=== PATIENT | female | born 1975 | race African-American/Black ===

== ENCOUNTER 2016-11-23 21:32 | Inpatient (IN) | payer MEDICAID ==
[~2016-11-23] VITALS: Ht 165.1 cm; Wt 117.9 kg
[2016-11-23] MEDS ORDERED: SODIUM CHLORIDE 0.9% 1,000 ML IV ONE (21:56)
[2016-11-23] MEDS ORDERED: METOCLOPRAMIDE HCL 10MG/2ML VIAL IV ONE (22:00)
[2016-11-23] MEDS ORDERED: SUMATRIPTAN SUCCINATE 6MG/0.5ML VIAL SUBCUT ONE (22:00)
[2016-11-23 22:36] LABS: CLARITY URINE CLEAR (CLEAR); COLOR URINE YELLOW (YELLOW); GLUCOSE URINE NEGATIVE (NEGATIVE); KETONES URINE NEGATIVE (NEGATIVE); LEUKOCYTE ESTERASE URINE NEGATIVE (NEGATIVE); NITRITE URINE NEGATIVE (NEGATIVE); OCCULT BLOOD URINE NEGATIVE (NEGATIVE); PROTEIN URINE NEGATIVE (NEGATIVE)
[2016-11-23 22:56] LABS: *AMPHETAMINES SCREEN URINE NEGATIVE (NEGATIVE); *BARBITURATES SCREEN URINE NEGATIVE (NEGATIVE); *BENZODIAZEPINES SCREEN URINE NEGATIVE (NEGATIVE); *COCAINE SCREEN URINE NEGATIVE (NEGATIVE); CANNABINOID URINE SCREEN NEGATIVE (NEGATIVE); METHADONE URINE SCREEN NEGATIVE (NEGATIVE); OPIATES URINE SCREEN NEGATIVE (NEGATIVE); PHENCYCLIDINE URINE SCREEN NEGATIVE (NEGATIVE)
[2016-11-23 23:29] LABS: BASOPHILS % 0.8 % (0.0-2.0); EOSINOPHILS % 0.8 % (0.0-5.0); HEMOGLOBIN. 9.7 g/dL (12.0-16.0); MEAN CORPUSCULAR HEMOGLOBIN 18.1 pg (28.0-32.0); MEAN PLATELET VOLUME 8.6 fl (7.4-10.4); MONOCYTES % 9.2 % (2.0-8.0); NEUTROPHILS % 73.2 % (40.0-76.0); PLATELET 488 x1000/uL (130-400); RED BLOOD CELL COUNT 5.34 mill/uL (4.2-5.4)
[2016-11-23 23:44] LABS: CARBON DIOXIDE 26 mEq/L (21-32); CHLORIDE 99 mEq/L (98-107); ETHANOL BLOOD < 10 mg/dL; TROPONIN I < 0.02 ng/mL (0.00-0.04)
[2016-11-24] MEDS ORDERED: PROCHLORPERAZINE 10MG/2ML VIAL IV STA (00:05)
[2016-11-24] MEDS ORDERED: MORPHINE SULFATE 4 MG/ML CPJ (NOT FOR IM USE) IV ONE (00:15)
[2016-11-24] MEDS ORDERED: MORPHINE SULFATE 4 MG/ML CPJ (NOT FOR IM USE) IV NR (01:30)
[2016-11-24] MEDS ORDERED: SODIUM CHLORIDE 0.9% 1,000 ML IV ONE (01:53)
[2016-11-24] MEDS ORDERED: ACETAMINOPHEN 325MG TABLET PO ONE (02:00)
[2016-11-24] MEDS ORDERED: METOCLOPRAMIDE HCL 10MG/2ML VIAL IV ONE (02:00)
[2016-11-24] MEDS ORDERED: DEXAMETHASONE 10 MG/ML VIAL IV ONE (02:15)
[2016-11-24] MEDS ORDERED: SODIUM CHLORIDE 0.9% 1,000 ML IV NR (02:49)
[2016-11-24 03:01] LABS: GLUCOSE CSF 73 mg/dL (41-75)
[2016-11-24 04:00] VITALS: BP 127/70
[2016-11-24 04:50] VITALS: BP 127/70
[2016-11-24] MEDS ORDERED: KETOROLAC 30MG/ML VIAL IV PRN (06:15)
[2016-11-24 06:52] LABS: PLATELET ESTIMATE INCREASED
[2016-11-24 08:00] VITALS: BP 111/62
[2016-11-24 09:49] LABS: BASOPHILS % 0.8 % (0.0-2.0); HEMATOCRIT. 26.8 % (36.0-48.0); HEMOGLOBIN. 8.2 g/dL (12.0-16.0); LYMPHOCYTES % 19.6 % (20.0-50.0); MEAN CORPUSCULAR VOLUME 59.2 fL (81.0-99.0); MEAN PLATELET VOLUME 7.8 fl (7.4-10.4); MONOCYTES % 10.9 % (2.0-8.0); NEUTROPHILS % 67.7 % (40.0-76.0); PLATELET 402 x1000/uL (130-400); RED BLOOD CELL COUNT 4.53 mill/uL (4.2-5.4); RED CELL DISTRIBUTION WIDTH 17.9 % (11.6-14.6)
[2016-11-24 10:21] LABS: CARBON DIOXIDE 26 mEq/L (21-32); CHLORIDE 105 mEq/L (98-107); CREATINE KINASE 240 IU/L (26-192); CREATINE KINASE MB FRACTION 0.7 ng/mL (0.5-3.6); TROPONIN I < 0.02 ng/mL (0.00-0.04)
[2016-11-24] MEDS ORDERED: HYDR25TA PO (11:17)
[2016-11-24] MEDS ORDERED: AMLO10TA80 PO (11:17)
[2016-11-24] MEDS ORDERED: IBUP-2030 PO (11:17)
[2016-11-24 12:00] VITALS: BP 127/78
[2016-11-24] MEDS ORDERED: ONDANSETRON HCL 4MG/2ML VIAL IV PRN (13:00)
[2016-11-24] MEDS ORDERED: POTASSIUM CHLORIDE 20MEQ TABLET SR PO NR (13:00)
[2016-11-24] MEDS ORDERED: DIPHENHYDRAMINE 50MG/ML VIAL IV NR ×2 (13:15→23:09)
[2016-11-24] MEDS: AMLODIPINE 10MG TABLET PO SCH (13:15)
[2016-11-24] MEDS: HYDROCHLOROTHIAZIDE 25MG TABLET PO SCH (13:36)
[2016-11-24] MEDS ORDERED: SUMATRIPTAN SUCCINATE 6MG/0.5ML VIAL SUBCUT NR (14:30)
[2016-11-24] MEDS ORDERED: SODIUM CHLORIDE 0.9% 10ML VIAL ONE (15:50)
[2016-11-24] MEDS ORDERED: IOHEXOL-350 100 ML BOTTLE ONE (15:50)
[2016-11-24 15:58] LABS: CREATINE KINASE 283 IU/L (26-192); CREATINE KINASE MB FRACTION 0.7 ng/mL (0.5-3.6); TROPONIN I < 0.02 ng/mL (0.00-0.04)
[2016-11-24 16:00] VITALS: BP 125/71
[2016-11-24] MEDS ORDERED: NAPROXEN 375MG TABLET PO PRN (18:30)
[2016-11-24 20:00] VITALS: BP 128/78
[2016-11-24] MEDS ORDERED: NORTRIPTYLINE HCL 25MG CAPSULE PO SCH (21:00)
[2016-11-25] VITALS: BP 110/74
[2016-11-25 04:00] VITALS: BP 108/59
[2016-11-25] MEDS ORDERED: NORT25CA PO (07:31)
[2016-11-25] MEDS ORDERED: NAPR-679 PO (07:31)
[2016-11-25] MEDS: HYDROCHLOROTHIAZIDE 25MG TABLET PO SCH (08:35)
[2016-11-25] MEDS: AMLODIPINE 10MG TABLET PO SCH (08:36)
[2016-11-25 09:40] LABS: BASOPHILS % 1.1 % (0.0-2.0); EOSINOPHILS % 2.8 % (0.0-5.0); HEMATOCRIT. 29.3 % (36.0-48.0); HEMOGLOBIN. 8.7 g/dL (12.0-16.0); LYMPHOCYTES % 25.8 % (20.0-50.0); MEAN CORPUSCULAR VOLUME 60.1 fL (81.0-99.0); MEAN PLATELET VOLUME 8.6 fl (7.4-10.4); MONOCYTES % 11.7 % (2.0-8.0); NEUTROPHILS % 58.6 % (40.0-76.0); PLATELET 411 x1000/uL (130-400); RED BLOOD CELL COUNT 4.87 mill/uL (4.2-5.4); RED CELL DISTRIBUTION WIDTH 17.7 % (11.6-14.6)
[2016-11-25 10:14] LABS: CARBON DIOXIDE 27 mEq/L (21-32); CHLORIDE 101 mEq/L (98-107)
[2016-11-25 10:21] VITALS: BP 112/74
== END 2016-11-25 12:33 | disposition home or self-care (01) | DRG 54 ==
LOC: ER 21:53 → 5WST 11-24 02:50 → ENRESERV 11-24 03:48
PROVIDERS: ADMIT Family Medicine; ATTEND Family Medicine
DX: G43.919 Migraine, unspecified, intractable, without status migrainosus (principal); Z68.41 Body mass index [BMI] 40.0-44.9, adult; I10 Essential (primary) hypertension; E66.01 Morbid (severe) obesity due to excess calories; D50.9 Iron deficiency anemia, unspecified; F51.04 Psychophysiologic insomnia; E78.00 Pure hypercholesterolemia, unspecified; E78.5 Hyperlipidemia, unspecified; E87.6 Hypokalemia; G89.29 Other chronic pain; L56.8 Other specified acute skin changes due to ultraviolet radiation; H53.149 Visual discomfort, unspecified; M79.1 Myalgia; M54.2 Cervicalgia; M54.9 Dorsalgia, unspecified; Z72.89 Other problems related to lifestyle
CPT/HCPCS: 36415; 62270; 70496; 80053; 80305; 81003; 82550; 82553; 82945; 83605; 83690; 84157; 84484; 85025; 87070; 87205; 89050; 96361; 96372; 96374; 96375; 99285; A4216; G0482; J0780; J1100; J1200; J1885; J2405; J2765; J3030; J7030; Q9967

== ENCOUNTER 2020-11-15 17:16 | Emergency (ER) | payer MEDICAID ==
[~2020-11-15] VITALS: Ht 175.3 cm; Wt 120.0 kg
[~2020-11-15 17:16] MED LIST: AMLO10TA80 PO; HYDR25TA PO; IBUP-2030 PO; NAPR-679 PO; NORT25CA PO
[2020-11-15] MEDS ORDERED: VISCOUS LIDOCAINE 2% 15 ML UDC PO STA (17:35)
[2020-11-15] MEDS ORDERED: MAGNESIUM/ALUMINUM HYDROXIDE/SIMETHICONE 30ML UDC PO STA (17:35)
[2020-11-15] MEDS ORDERED: FAMOTIDINE 20MG/2ML VIAL IV STA (17:35)
[2020-11-15] MEDS ORDERED: SODIUM CHLORIDE 0.9% 1,000 ML IV ONE (17:45)
[2020-11-15 18:11] LABS: CLARITY URINE TURBID (CLEAR); COLOR URINE YELLOW (YELLOW); KETONES URINE NEGATIVE (NEGATIVE); LEUKOCYTE ESTERASE URINE TRACE (NEGATIVE); NITRITE URINE NEGATIVE (NEGATIVE); OCCULT BLOOD URINE NEGATIVE (NEGATIVE); PROTEIN URINE NEGATIVE (NEGATIVE); SPECIFIC GRAVITY URINE 1.025 (1.005-1.030); UROBILINOGEN URINE 0.2 E.U./dL (0.2-1.0)
[2020-11-15 18:12] LABS: EOSINOPHILS % 1.1 % (0.0-5.0); HEMATOCRIT. 41.7 % (36.0-48.0); HEMOGLOBIN. 14.1 g/dL (12.0-16.0); LYMPHOCYTES % 22.7 % (20.0-50.0); MEAN CORPUSCULAR VOLUME 77.2 fL (81.0-99.0); MONOCYTES % 7.2 % (2.0-8.0); PLATELET 388 x1000/uL (130-400); RED CELL DISTRIBUTION WIDTH 14.8 % (11.6-14.6)
[2020-11-15 18:20] LABS: CHLORIDE 103 mEq/L (98-107)
[2020-11-15 18:24] LABS: ETHANOL BLOOD < 10 mg/dL
[2020-11-15 18:36] LABS: HCG SCREEN NEGATIVE
[2020-11-15 18:49] LABS: *AMPHETAMINES SCREEN URINE NEGATIVE (NEGATIVE); *BARBITURATES SCREEN URINE NEGATIVE (NEGATIVE); *BENZODIAZEPINES SCREEN URINE NEGATIVE (NEGATIVE); *COCAINE SCREEN URINE NEGATIVE (NEGATIVE)
[2020-11-15 18:50] LABS: CANNABINOID URINE SCREEN NEGATIVE (NEGATIVE); METHADONE URINE SCREEN NEGATIVE (NEGATIVE); OPIATES URINE SCREEN NEGATIVE (NEGATIVE); PHENCYCLIDINE URINE SCREEN NEGATIVE (NEGATIVE)
[2020-11-15] MEDS ORDERED: PROCHLORPERAZINE 10MG/2ML VIAL IM ONE (19:15)
[2020-11-15] MEDS ORDERED: DICYCLOMINE HCL 10MG CAPSULE PO ONE (19:15)
[2020-11-15] MEDS ORDERED: MORPHINE SULFATE 4 MG/ML CPJ (NOT FOR IM USE) IV ONE (19:15)
[2020-11-15] MEDS ORDERED: PROT20 MT (19:49)
[2020-11-15] MEDS ORDERED: MAG-55 MT (19:49)
[2020-11-15] MEDS ORDERED: NITR-87 MT (19:49)
[2020-11-15] MEDS ORDERED: HYDR-4001 MT (19:49)
[2020-11-15] MEDS ORDERED: ONDA4TAB5 MT (19:49)
[2020-11-15] MEDS ORDERED: DIPHENHYDRAMINE 50MG/ML VIAL IV ONE (21:00)
[2020-11-15] MEDS ORDERED: SODIUM CHLORIDE 0.9% 500 ML IV ONE (21:00)
[2020-11-15 21:55] VITALS: BP 145/81
== END 2020-11-15 21:55 | disposition home or self-care (01) ==
LOC: ER 17:16
DX: R10.13 Epigastric pain (principal); N39.0 Urinary tract infection, site not specified; I10 Essential (primary) hypertension; R00.2 Palpitations; R51.9 Headache, unspecified; E78.00 Pure hypercholesterolemia, unspecified; K21.9 Gastro-esophageal reflux disease without esophagitis; J45.909 Unspecified asthma, uncomplicated; Z90.710 Acquired absence of both cervix and uterus
CPT/HCPCS: 36415; 76705; 80053; 80305; 80320; 81003; 83690; 84703; 85025; 93005; 96361; 96372; 96374; 96375; 99285; J0780; J1200; J2270; J3490; J7030; J7040; Z7610; G0480

== ENCOUNTER 2021-06-01 19:09 | Emergency (ER) | payer MEDICAID, OTHER ==
[~2021-06-01] VITALS: Ht 165.1 cm; Wt 100.0 kg
[~2021-06-01 19:09] MED LIST changes: +HYDR-4001 MT; +MAG-55 MT; +NITR-87 MT; +ONDA4TAB5 MT; +PROT20 MT
[2021-06-01] MEDS ORDERED: MORPHINE SULFATE 4 MG/ML CPJ (NOT FOR IM USE) IV STA (20:05)
[2021-06-01] MEDS ORDERED: ONDANSETRON HCL 4MG/2ML INJ IV STA (20:05)
[2021-06-01] MEDS ORDERED: SODIUM CHLORIDE 0.9% 1,000 ML IV ONE (20:15)
[2021-06-01 20:40] LABS: BASOPHILS % 1.1 % (0.0-2.0); EOSINOPHILS % 2.3 % (0.0-5.0); HEMATOCRIT. 39.6 % (36.0-48.0); HEMOGLOBIN. 13.1 g/dL (12.0-16.0); LYMPHOCYTES % 29.3 % (20.0-50.0); MEAN CORPUSCULAR HEMOGLOBIN 26.1 pg (28.0-32.0); MEAN CORPUSCULAR VOLUME 78.8 fL (81.0-99.0); MEAN PLATELET VOLUME 8.5 fl (7.4-10.4); MONOCYTES % 10.2 % (2.0-8.0); NEUTROPHILS % 57.1 % (40.0-76.0); PLATELET 246 x1000/uL (130-400); RED BLOOD CELL COUNT 5.02 mill/uL (4.2-5.4); RED CELL DISTRIBUTION WIDTH 15.1 % (11.6-14.6)
[2021-06-01 20:47] LABS: CHLORIDE 109 mEq/L (98-107)
[2021-06-01 20:57] LABS: HCG SCREEN NEGATIVE
[2021-06-01] MEDS ORDERED: MAGNESIUM CITRATE 300ML SOLUTION PO NR (22:30)
[2021-06-01] MEDS ORDERED: KETOROLAC 60MG/2ML VIAL IM NR (22:30)
[2021-06-01 22:52] LABS: CLARITY URINE CLOUDY (CLEAR); COLOR URINE DARK YELLOW (YELLOW); KETONES URINE 2+ (NEGATIVE); LEUKOCYTE ESTERASE URINE NEGATIVE (NEGATIVE); NITRITE URINE NEGATIVE (NEGATIVE); OCCULT BLOOD URINE NEGATIVE (NEGATIVE); PROTEIN URINE TRACE (NEGATIVE); SPECIFIC GRAVITY URINE 1.039 (1.005-1.030)
[2021-06-01] MEDS ORDERED: NITR-87 MT (23:48)
[2021-06-01] MEDS ORDERED: POLY119P2 MT (23:49)
[2021-06-02] MEDS ORDERED: NITROFURANTOIN 100MG M/M CAPSULE PO ONE
[2021-06-02] MEDS ORDERED: ONDA4TAB5 MT (00:03)
[2021-06-02 00:15] VITALS: BP 140/85
[2021-06-02] MEDS ORDERED: ONDANSETRON 4MG ODT PO NR (00:15)
== END 2021-06-02 00:15 | disposition home or self-care (01) ==
LOC: ER 19:09
DX: N39.0 Urinary tract infection, site not specified (principal); K21.9 Gastro-esophageal reflux disease without esophagitis; I10 Essential (primary) hypertension; J45.909 Unspecified asthma, uncomplicated; Z98.84 Bariatric surgery status; Z90.710 Acquired absence of both cervix and uterus; Z88.8 Allergy status to other drugs, medicaments and biological substances
CPT/HCPCS: 36415; 74176; 80053; 81003; 83690; 84703; 85025; 96372; 99284; J1885; J7030; Q0162; J2270; J2405

== ENCOUNTER 2021-08-23 11:32 | Emergency (ER) | payer OTHER ==
[~2021-08-23 11:32] MED LIST changes: +POLY119P2 MT
== END 2021-08-23 12:51 | disposition left against medical advice (07) ==
LOC: ER 11:32
DX: Z53.21 Procedure and treatment not carried out due to patient leaving prior to being seen by health care provider (principal)

== ENCOUNTER 2021-11-24 03:22 | Emergency (ER) | payer OTHER ==
[~2021-11-24] VITALS: Ht 165.1 cm; Wt 92.0 kg
[2021-11-24 03:31] VITALS: BP 145/101
== END 2021-11-24 06:08 | disposition left against medical advice (07) ==
LOC: ER 03:22
DX: Z53.21 Procedure and treatment not carried out due to patient leaving prior to being seen by health care provider (principal)